=== PATIENT | male | born 1955 | race Caucasian/White ===

== ENCOUNTER 2016-09-20 16:03 | Emergency (ER) | payer OTHER ==
[~2016-09-20] VITALS: Ht 175.3 cm; Wt 94.3 kg
[~2016-09-20 16:03] MED LIST: BENADRYL 50 MG50 MG PO; GEMFIBROZIL600 MG PO; LEVOTHYROXIN0.112 M1 PO; LISINOPRIL-HCTZ 10-1 PO; LOVAZA1 GM PO; MOTRIN 600 MG600 MG PO; PREDNISONE 20MG20 MG PO
[2016-09-20] MEDS ORDERED: BROMPHENIR-PSE118 ML PO (16:13)
[2016-09-20] MEDS ORDERED: AZITHROMYCIN250 M1 PO (16:14)
[2016-09-20] MEDS ORDERED: TAMSULOSIN HCL0.4 M1 PO (16:15)
[2016-09-20] MEDS ORDERED: LISINOPRIL-HCT1 EAC1 PO (16:15)
[2016-09-20] MEDS ORDERED: AMLODIPINE BESYL5 M1 PO (16:17)
[2016-09-20] MEDS ORDERED: MOMETASONE FURO45 G1 TOP (16:18)
--- NOTE | 2016-09-20 16:24 | ED INFLUENZA/URI COMPLAINT ---
History of Present Illness General Chief Complaint: General Adult Stated Complaint: BIBA, FEVER, COUGH Source: patient Exam Limitations: no limitations Vital Signs & Intake/Output Vital Signs & Intake/Output Vital Signs Date Time Temp Pulse Resp B/P Pulse O2 O2 Flow FiO2 Ox Delivery Rate 09/20 1946 91 18 128/74 96 Room Air 09/20 1849 98.7 09/20 1747 101.5 115 20 132/60 94 Room Air 09/20 1746 101.5 09/20 1702 102.5 09/20 1700 102.7 09/20 1611 102.7 114 20 160/86 93 Room Air Allergies Coded Allergies: NO KNOWN ALLERGIES (09/20/16) Reconcile Medications Amlodipine Besylate 5 MG TABLET 1 TAB PO DAILY BP (Reported) Azithromycin 250 MG TABLET 1 DP PO AD ANTIBIOTIC (Reported) 2 the first day followed by 1 for days 2-5 Brompheniramine/Pseudoephed/Dm (Ourgfsaliz-Hcmwdblyztm-Bx Syr) 2 MG-30 MG-10 MG/ 5 ML SYRUP 10 ML PO Q6 COUGH (Reported) Levothyroxine Sodium 0.112 MG TAB 1 TAB PO DAILY HYPOTHYROID (Reported) Lisinopril/Hydrochlorothiazide (Lisinopril-Hctz 20-25 MG Tab) 20 MG-25 MG TABLET 1 TAB PO DAILY BP (Reported) Mometasone Furoate 0.1 % OINT...G. 1 EMI TOP BID SCRATCHES ON BOTH LEGS ( Reported) apply to affected area(s) Tamsulosin HCl 0.4 MG CAP.ER.24H 1 CAP PO DAILY PROSTATE (Reported) Triage Note: PT BIBA FROM HOME C/C FEVER TODAY AND COUGH X 4 DAYS. WAS SEEN AT [facility] IN [place] THIS MORNING AND GIVEN PRESCRIPTIONS FOR AZIRTHROMYCIN AND COUGH MEDICINE. TOOK 1 DOSE OF EACH. 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 REPORTS COUGH HAS BEEN NONPRODUCTIVE. Triage Nurses Notes Reviewed? yes HPI: This patient is a 61-year-old male who presented to the emergency department today brought in by ambulance for evaluation of fever and cough. The patient reported that his cough began approximate 3 days ago and it is nonproductive. He reported that he developed a fever today. The patient reported that this morning he was seen at [facility] and given a prescription for azithromycin and a cough medication. He did not take any doses of these medications prior to arrival in the emergency department. He reported that he still has a fever and a cough. He denied any nasal congestion, chest pain, difficulty breathing, abdominal pain, nausea, vomiting, diarrhea, constipation, or any back pain. (ANTOINETTE DAILEY PA-C) Past History Travel History Traveled to [place] past 21 day No Medical History Any Pertinent Medical History? 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 No (ANTOINETTE DAILEY PA-C) Review of Systems Review of Systems Constitutional: Reports: see HPI. EENTM: Reports: no symptoms. Respiratory: Reports: see HPI. Cardiovascular: Reports: no symptoms. GI: Reports: no symptoms. Genitourinary: Reports: no symptoms. Musculoskeletal: Reports: no symptoms. Skin: Reports: no symptoms. Neurological/Psychological: Reports: no symptoms. All Other Systems: Reviewed and Negative (ANTOINETTE DAILEY PA-C) Physical Exam Physical Exam Ears, Nose, Throat: normal ENT inspection, moist mucous membrane, hearing grossly normal, pharynx normal, NO NASAL CONGESTION Comments: Well-developed well-nourished person in no acute distress HEENT: Normal EENT exam head normocephalic, moist mucous membranes membranes Back: Normal gait. Normal inspection. No CVA tenderness Cardiovascular: Regular rate and rhythm with no murmurs, rubs, or gallops. No carotid bruits. No JVD Respiratory: Chest nontender. No respiratory distress. Breath sounds clear to auscultation bilaterally with no wheezes, rales, or rhonchi. No diminished breath sounds or stridor Abdomen: Soft, nontender and nondistended with normoactive bowel sounds Extremity: No edema, no calf tenderness to palpation, normal and equal pulses. Neuro: Alert oriented x3, cranial nerves II through XII grossly intact. Skin: No appreciable rash on exposed skin, skin is warm and dry. Psych: Mood and affect is normal Core Measures Severe Sepsis Present: No Septic Shock Present: No (ANTOINETTE DAILEY PA-C) Progress Differential Diagnosis: influenza, meningitis, otitis, pneumonia, pharyngitis, sinusitis Plan of Care: Orders Procedure Date/time Status RAPID VIRAL INFLUENZA A 09/20 173 Complete COMPREHENSIVE METABOLIC PANEL 09/20 1623 Complete CBC WITHOUT DIFFERENTIAL 09/20 1623 Complete Laboratory Tests 09/20/16 1650: Anion Gap 10, Estimated GFR > 60, BUN/Creatinine Ratio 21.0, Glucose 105 H, Calcium 8.9, Total Bilirubin 0.7, AST 31, ALT 56, Alkaline Phosphatase 111, Total Protein 7.2, Albumin 4.3, Globulin 2.9, Albumin/Globulin Ratio 1.5, CBC w Diff NO MAN DIFF REQ, RBC 5.36, MCV 83.4, MCH 28.1, RDW 13.4, MPV 7.6, Gran % 86.2 H, Lymphocytes % 8.5 L, Monocytes % 4.6, Eosinophils % 0.6, Basophils % 0.1, Absolute Granulocytes 11.7 H, Absolute Lymphocytes 1.2, Absolute Monocytes 0.6, Absolute Eosinophils 0.1, Absolute Basophils 0, PUBS MCHC 33.7 Diagnostic Imaging: Viewed by Me: Radiology Read. Discussed w/RAD: Radiology Read. CXR Impression: PATIENT: GEORGINA OH PRESENT AGE: 61 PATIENT ACCOUNT NO: [id number] : 53 LOCATION: [facility] ORDERING PHYSICIAN: ANTOINETTE DAILEY PA-C SERVICE DATE: 09/20/16 EXAM TYPE: RAD - XRY-CHEST XRAY, PA AND LATERAL EXAMINATION: XR CHEST CLINICAL INFORMATION: Cough. Fever. Rule out pneumonia. COMPARISON: CT chest of 09/05/2007. TECHNIQUE: 2 views of the chest were obtained. FINDINGS: The cardiac size is normal. The lungs are normally and symmetrically expanded. No focal consolidation, changes of congestion or pleural effusions. No pneumothorax. There is stable mild elevation of the right hemidiaphragm. The visualized osseous structures and upper abdomen are unremarkable. IMPRESSION: No radiographic evidence of pneumonia. No acute pulmonary process. DICTATED BY: ENA CROUCH,ANAL DATE/TIME DICTATED:09/20/161646 NURSE CLINICAL:RODOLFO DATE/TIME TRANSCRIBED:09/20/161646 CONFIDENTIAL, DO NOT COPY WITHOUT APPROPRIATE AUTHORIZATION. <Electronically signed in Other Vendor System> SIGNED BY: CATARINA SUTHERLAND MD 09/20/16 7629 Initial ED EKG: none (ASIM PEÑA,ANTOINETTE) Departure Departure Disposition: HOME OR SELF CARE Condition: Stable Clinical Impression Primary Impression: Viral syndrome Referrals: PEARL MICHAEL MD (PCP/Family) Additional Instructions: PLEASE TAKE PREVIOUSLY PRESCRIBED ANTIBIOTIC DIRECTED AND FOR ITS FULL DURATION. TAKE TYLENOL OR MOTRIN DIRECTED FOR FEVERS. REST AND BE SURE TO STAY HYDRATED. FOLLOW-UP WITH YOUR PRIMARY CARE PHYSICIAN. RETURN FOR ANY WORSENING SYMPTOMS OR CONCERNS. Departure Forms: Customer Survey General Discharge Information (ANTOINETTE DAILEY PA-C) PA/OIL AND GAS FIELD TECHNICIAN Co-Sign Statement Statement: ED Attending supervision documentation- [] I saw and evaluated the patient. I have also reviewed all the pertinent lab results and diagnostic results. I agree with the findings and the plan of care as documented in the PA's/OIL AND GAS FIELD TECHNICIAN's documentation. [X] I have reviewed the ED Record and agree with the PA's/OIL AND GAS FIELD TECHNICIAN's documentation. [] Additions or exceptions (if any) to the PAs/OIL AND GAS FIELD TECHNICIAN's note and plan are summarized below: [] (SHERICE MAHARAJ DO)
--- NOTE | 2016-09-20 16:53 | RADIOLOGY REPORT ---
EXAMINATION: XR CHEST CLINICAL INFORMATION: Cough. Fever. Rule out pneumonia. COMPARISON: CT chest of 09/05/2007. TECHNIQUE: 2 views of the chest were obtained. FINDINGS: The cardiac size is normal. The lungs are normally and symmetrically expanded. No focal consolidation, changes of congestion or pleural effusions. No pneumothorax. There is stable mild elevation of the right hemidiaphragm. The visualized osseous structures and upper abdomen are unremarkable. IMPRESSION: No radiographic evidence of pneumonia. No acute pulmonary process.
[2016-09-20 16:59] LABS: ABSOLUTE BASOPHIL COUNT 0 /CUMM (0.0-0.2); ABSOLUTE EOSINOPHIL COUNT 0.1 /CUMM (0.0-0.7); ABSOLUTE GRANULOCYTE CT 11.7 /CUMM (1.4-6.5); ABSOLUTE LYMPH COUNT 1.2 /CUMM (1.2-3.4); ABSOLUTE MONOCYTE COUNT 0.6 /CUMM (0.10-0.60); BASOPHIL % 0.1 % (0.0-2.0); EOSINOPHIL % 0.6 % (0-5); HEMATOCRIT 44.7 % (42-52); MEAN CORPUSCULAR HGB 28.1 PG (27.0-31.0); MEAN CORPUSCULAR HGB CONC 33.7 G/DL (33.0-37.0); MEAN CORPUSCULAR VOLUME 83.4 FL (80.0-94.0); MEAN PLATELET VOLUME 7.6 FL (7.4-10.4); PLATELET COUNT 245 /CUMM (130-400); RBC DISTRIBUTION WIDTH 13.4 % (11.5-14.5); RED BLOOD CELL CT 5.36 /CUMM (4.70-6.10); WHITE BLOOD CELL COUNT 13.6 /CUMM (4.8-10.8)
[2016-09-20 17:00] LABS: GRANULOCYTE % 86.2 % (42.2-75.2)
[2016-09-20 19:46] VITALS: BP 128/74
== END 2016-09-20 19:47 ==
LOC: ERH 16:03
PROVIDERS: Physician Assistant
DX: B34.9 Viral infection, unspecified (principal); R05 Cough
CPT/HCPCS: 87804; 87804-59; 96374; J0131

== ENCOUNTER 2018-03-13 13:44 | Observation (INO) | payer OTHER ==
[~2018-03-13] VITALS: Ht 162.6 cm; Wt 92.2 kg
[~2018-03-13 13:44] MED LIST changes: +AMLODIPINE BESYL5 M1 PO; +AZITHROMYCIN250 M1 PO; +BROMPHENIR-PSE118 ML PO; +LISINOPRIL-HCT1 EAC1 PO; +MOMETASONE FURO45 G1 TOP; +TAMSULOSIN HCL0.4 M1 PO
[2018-03-13 14:10] LABS: ABSOLUTE BASOPHIL COUNT 0 /CUMM (0.0-0.2); ABSOLUTE EOSINOPHIL COUNT 0.1 /CUMM (0.0-0.7); ABSOLUTE GRANULOCYTE CT 6.6 /CUMM (1.4-6.5); ABSOLUTE LYMPH COUNT 2.6 /CUMM (1.2-3.4); ABSOLUTE MONOCYTE COUNT 0.6 /CUMM (0.10-0.60); BASOPHIL % 0.2 % (0.0-2.0); EOSINOPHIL % 1.2 % (0-5); GRANULOCYTE % 67.2 % (42.2-75.2); HEMATOCRIT 44.2 % (42-52); MEAN CORPUSCULAR HGB 28.9 PG (27.0-31.0); MEAN CORPUSCULAR HGB CONC 34.1 G/DL (33.0-37.0); MEAN CORPUSCULAR VOLUME 84.6 FL (80.0-94.0); MEAN PLATELET VOLUME 8.5 FL (7.4-10.4); PLATELET COUNT 277 /CUMM (130-400); RBC DISTRIBUTION WIDTH 13.2 % (11.5-14.5); RED BLOOD CELL CT 5.22 /CUMM (4.70-6.10); WHITE BLOOD CELL COUNT 9.9 /CUMM (4.8-10.8)
--- NOTE | 2018-03-13 15:14 | RADIOLOGY REPORT ---
EXAMINATION: XR CHEST CLINICAL INFORMATION: Shoulder pain. Dizziness. COMPARISON: Chest x-ray 09/27/2016 TECHNIQUE: 2 views of the chest were obtained. FINDINGS: No significant abnormality is noted involving the heart, lungs, mediastinum, bony thorax or soft tissues. IMPRESSION: No acute abnormality of the chest.
--- NOTE | 2018-03-13 16:59 | ED GENERAL ADULT ---
History of Present Illness General Chief Complaint: General Adult Stated Complaint: DIZZINESS, SWEATS X 24 HRS Source: patient Exam Limitations: no limitations Vital Signs & Intake/Output Vital Signs & Intake/Output Vital Signs Date Time Temp Pulse Resp B/P B/P Pulse O2 O2 Flow FiO2 Mean Ox Delivery Rate 03/14 0122 97.7 46 18 120/62 97 Room Air 03/13 2014 97.6 45 20 117/64 97 Room Air 03/13 1705 07 Room Air Room Air 03/13 1347 96.5 113 16 103/69 97 Room Air ED Intake and Output 03/14 0000 03/13 1200 Intake Total 1000 Output Total Balance 1000 Intake, IV 1000 Patient 202 lb Weight Weight Reported by Patient Measurement Method Triage Note: PT TO ED WITH C/O DIZZINESS, DIAPHORESIS AND BILATERAL SHOULDER WEAKNESS SINCE YESTERDAY. DENIES CP. STATES MILD SOB. NEURO CHECK GROSSLY INTACT AT TRIAGE. SPEAKING IN FULL SENTENCES, 02 SAT 97%. DENIES MEDICAL HX. Triage Nurses Notes Reviewed? yes Onset: Abrupt Duration: day(s): Timing: recent history HPI: 03/13/18 5:16 PM 63-year-old male presented to the emergency department with dizziness and weakness. He's had several episodes of dizziness and diaphoresis. He's recently been diagnosed with diabetes. No chest pain. He says he's had similar episodes in the past workup, has been negative. No chest pain. No shortness of breath. No fever. Only dizziness and diaphoresis. The episodes last minutes. He is asymptomatic in the ED now. (Orlin Teran DO) Allergies Coded Allergies: NO KNOWN ALLERGIES (09/20/16) Reconcile Medications Amlodipine Besylate 5 MG TABLET 1 TAB PO DAILY BP (Reported) Azithromycin 250 MG TABLET 1 DP PO AD ANTIBIOTIC (Reported) 2 the first day followed by 1 for days 2-5 Brompheniramine/Pseudoephed/Dm (Uttiihfqhi-Giecgamksga-Ic Syr) 2 MG-30 MG-10 MG/ 5 ML SYRUP 10 ML PO Q6 COUGH (Reported) Levothyroxine Sodium 112 MCG TABLET 1 TAB PO DAILY AC HYPOTHYROID (Reported) Lisinopril/Hydrochlorothiazide (Lisinopril-Hctz 20-25 MG Tab) 20 MG-25 MG TABLET 1 TAB PO DAILY BP (Reported) Mometasone Furoate 0.1 % OINT...G. 1 EMI TOP BID SCRATCHES ON BOTH LEGS ( Reported) apply to affected area(s) Rosuvastatin Calcium (Crestor) 10 MG TABLET 1 TAB PO DAILY Heart Health ( Reported) Tamsulosin HCl 0.4 MG CAP.ER.24H 1 CAP PO DAILY PROSTATE (Reported) (Farnaz CROUCH,Donald Michelle) Past History Travel History Traveled to [place] past 21 day No Medical History Any Pertinent Medical History? 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 No (Orlin Teran DO) Review of Systems Review of Systems Constitutional: Denies: fever. EENTM: Denies: visual changes. Respiratory: Denies: short of breath. Cardiovascular: Denies: chest pain. GI: Denies: abdominal pain. Genitourinary: Reports: no symptoms. Musculoskeletal: Reports: no symptoms. Skin: Reports: see HPI. Neurological/Psychological: Reports: no symptoms. Hematologic/Endocrine: Reports: no symptoms. Immunologic/Allergic: Reports: no symptoms. (Orlin Teran DO) Physical Exam Physical Exam General Appearance: well developed/nourished, alert, awake, anxious, mild distress Head: atraumatic, normal appearance Eyes: Bilateral: normal appearance, PERRL, EOMI. Ears, Nose, Throat: normal pharynx, normal ENT inspection Neck: normal inspection, supple, full range of motion Respiratory: normal breath sounds, chest non-tender, no respiratory distress Cardiovascular: regular rate/rhythm Peripheral Pulses: 4+ radial (R), 4+ radial (L) Gastrointestinal: soft, non-tender Back: normal range of motion Extremities: normal inspection, normal range of motion, no edema Neurologic/Psych: no motor/sensory deficits, awake, alert, oriented x 3 Skin: intact, normal color, warm/dry Core Measures ACS in differential dx? Yes CVA/TIA Diagnosis: No Sepsis Present: No Sepsis Focused Exam Completed? No (Orlin Teran DO) Progress Differential Diagnoses I considered the following diagnoses in my evaluation of the patient: [Acute coronary syndrome, dysrhythmia, dehydration, anemia, hypoglycemia, adverse drug reaction, DKA] Plan of Care: Orders Procedure Date/time Status Regular Diet 03/14 B Active ECHOCARDIOGRAM 03/14 0800 Active BASIC ELECTROLYTES PLUS BUN&CR 03/14 0600 Active Vital Signs 03/14 0250 Complete Teach/Educate 03/14 0250 Active Pain Treatment and Response 03/14 0250 Complete Nutritional Intake, Monitor 03/14 0250 Complete Isolation 03/14 025 Complete Intake & Output 03/14 0250 Complete Patient Care Conference 03/14 0250 Active Activity/Ambulation 03/14 0250 Complete Weight 03/14 0249 Active Vital Signs 03/14 0249 Complete Teach/Educate 03/14 0249 Active Pain Treatment and Response 03/14 0249 Active Nutritional Intake, Monitor 03/14 0249 Active Isolation 03/14 0249 Active Intake & Output 03/14 0249 Complete Patient Care Conference 03/14 0249 Complete Activity/Ambulation 03/14 0249 Active TROPONIN LEVEL 03/14 0130 Complete EKG 03/14 0130 Active Lab Add-on Test 03/14 UNK Active Pathway - chart 03/13 2234 Active House Staff 03/13 2234 Active Code Status 03/13 2234 Active Patient Data 03/13 2047 Active Saline Lock 03/[address] in observation 03/13 2042 Active Misc Message 03/13 2042 Active ED Holding Orders 03/13 2042 Active Vital Signs 03/13 2042 Active Code Status 03/13 2042 Complete EKG 03/13 2025 Active TROPONIN LEVEL 03/13 1913 Complete EKG 03/13 1913 Active Intake & Output 03/13 1814 Active THYROID STIMULATING HORMONE 03/13 1401 Complete TROPONIN LEVEL 03/13 1347 Complete D-DIMER 03/13 1347 Complete COMPREHENSIVE METABOLIC PANEL 03/13 1347 Complete CBC WITHOUT DIFFERENTIAL 03/13 1347 Complete EKG 03/13 1347 Active VTE Mechanical Prophylaxis 03/13 UNK Active MISTAKE 03/13 UNK Active Current Medications Sig/Asiya Start time Last Medication Dose Stop Time Status Admin Atorvastatin Calcium 10 MG 1700 03/14 1700 AC (Lipitor) Amlodipine Besylate 5 MG DAILY 03/14 0900 AC (Norvasc) Tamsulosin HCl 0.4 MG DAILY 03/14 09 AC (Flomax) Levothyroxine Sodium 0.112 MG DAILY AC 03/14 0700 AC (Synthroid) Heparin Sodium 5,000 UNIT Q8 03/14 0600 AC (Porcine) Sodium Chloride 1,000 ML .[id number] 03/13 2245 AC (Normal Saline 0.9%) 03/14 1204 Laboratory Tests 03/14/18 0130: Troponin I < 0.01 03/13/18 1924: Troponin I < 0.01 03/13/18 1401: Anion Gap 15, Estimated GFR 51 L, BUN/Creatinine Ratio 23.6, Glucose 187 H, Calcium 8.9, Total Bilirubin 0.6, AST 23, ALT 39, Alkaline Phosphatase 103, Troponin I < 0.01, Total Protein 7.0, Albumin 4.2, Globulin 2.8, Albumin/ Globulin Ratio 1.5, TSH 1.440, D-Dimer High Sensitivty < 200, CBC w Diff NO MAN DIFF REQ, RBC 5.22, MCV 84.6, MCH 28.9, MCHC 34.1, RDW 13.2, MPV 8.5, Gran % 67.2, Lymphocytes % 25.8, Monocytes % 5.6, Eosinophils % 1.2, Basophils % 0.2, Absolute Granulocytes 6.6 H, Absolute Lymphocytes 2.6, Absolute Monocytes 0.6, Absolute Eosinophils 0.1, Absolute Basophils 0 Initial ED EKG: JUNCTIONAL TACHYCARDIA, NONSPECIFIC ST WAVE ABNORMALITY (Orlin Teran DO) Departure Departure Disposition: STILL A PATIENT Condition: Stable Referrals: Brandie Waddell APRN (PCP/Family) Departure Forms: Customer Survey General Discharge Information Comments 03/13/18 The patient's EKG revealed junctional tachycardia. His physical exam is completely normal. 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 Heart is regular rate and rhythm. Lungs are clear. Abdomen is soft and nontender. He received IV fluids. Labs showed mild dehydration. He was for reevaluation and repeat EKG and troponin. The patient was signed out to Dr. Osei at 7 PM. Chest x-ray was negative. (Orlin Teran DO) Departure Clinical Impression Primary Impression: Dizziness Secondary Impressions: Symptomatic bradycardia Observation Note Spoke With: Prabha Fenton MD Place Patient In: Non-ED OBS Care Area Rationale for Observation: My rational for observation is as follows . PA/HEATING OPERATORS ENGINEER Co-Sign Statement Statement: ED Attending supervision documentation- [x] I saw and evaluated the patient. I have also reviewed all the pertinent lab results and diagnostic results. I agree with the findings and the plan of care as documented in the PA's/HEATING OPERATORS ENGINEER's documentation. [] I have reviewed the ED Record and agree with the PA's/HEATING OPERATORS ENGINEER's documentation. [] Additions or exceptions (if any) to the PAs/HEATING OPERATORS ENGINEER's note and plan are summarized below: [] (Farnaz CROUCH,Donald Michelle) Critical Care Note Critical Care Note Critical Care Time: non-applicable (Orlin Teran DO)
--- NOTE | 2018-03-13 21:18 | History & Physical ---
Miguel CROUCH,[facility] 03/13/182117: General Information and HPI MD Statement: I have seen and personally examined GEORGINA OH and documented this H&P. The patient is a 63 year old M who presented with a patient stated chief complaint of [dizziness and diaphoresis]. Source of Information: patient Exam Limitations: language barrier History of Present Illness: 63 yo M with PMH of hypertension, hypothyroidism, hyperlipidemia and BPH presented to the ED with complains of dizziness and diaphoresis going on since yesterday. History is slightly limited as the patient is not able to convey fluently in Maltese. The patient states that he was in his usual state health until yesterday afternoon. 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 He was working outside yesterday when he started feeling dizzy with profuse sweating. He excused himself from work and came home and rested after which he started feeling better. Today he went to work again and experienced similar symptoms all over again. He left for home again and felt better afterwards. He went to his PCP at [facility] later today who told him he was dehydrated. However, he decided to visit the ER for further evaluation. He denies any prior episodes or sick contacts around. He denies any chest pain, palpitations, lightheadedness or any other associated symptoms. States he has never seen a director federal in the past. At the time of interview the patient was asymptomatic and denied any complains. Allergies/Medications Allergies: Coded Allergies: NO KNOWN ALLERGIES (09/20/16) Home Med list Amlodipine Besylate 5 MG TABLET 1 TAB PO DAILY BP (Reported) Azithromycin 250 MG TABLET 1 DP PO AD ANTIBIOTIC (Reported) 2 the first day followed by 1 for days 2-5 Brompheniramine/Pseudoephed/Dm (Wseanpekgl-Gmylosihntk-Ib Syr) 2 MG-30 MG-10 MG/ 5 ML SYRUP 10 ML PO Q6 COUGH (Reported) Levothyroxine Sodium 112 MCG TABLET 1 TAB PO DAILY AC HYPOTHYROID (Reported) Lisinopril/Hydrochlorothiazide (Lisinopril-Hctz 20-25 MG Tab) 20 MG-25 MG TABLET 1 TAB PO DAILY BP (Reported) Mometasone Furoate 0.1 % OINT...G. 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 EENTM: Reports: no symptoms. Cardiovascular: Denies: chest pain, palpitations. Respiratory: Reports: short of breath. GI: Reports: no symptoms. Genitourinary: Reports: no symptoms. Musculoskeletal: Reports: no symptoms. Skin: Reports: no symptoms. Neurological/Psychological: Reports: weakness, other (dizziness). Exam & Diagnostic Data Last 24 Hrs of Vital Signs/I&O Vital Signs Date Time Temp Pulse Resp B/P B/P Pulse O2 O2 Flow FiO2 Mean Ox Delivery Rate 03/13 2014 97.6 45 20 117/64 97 Room Air 03/13 1705 07 Room Air Room Air 03/13 1347 96.5 113 16 103/69 97 Room Air Intake & Output 03/13 1600 03/13 0800 03/13 0000 Intake Total Output Total Balance Patient 202 lb Weight Weight Reported by Patient Measurement Method Physical Exam General Appearance Alert, Oriented X3, Cooperative, No Acute Distress Skin No Rashes, No Breakdown Skin Temp/Moisture Exam: Warm/Dry Sepsis Skin Exam (color): Normal for Ethnicity HEENT Atraumatic Cardiovascular Normal S1, Normal S2, No Murmurs, bradycardic Lungs Clear to Auscultation, Normal Air Movement Abdomen Soft, No Tenderness Neurological Normal Speech, Strength at 5/5 X4 Ext Extremities No Edema Last 24 Hrs of Labs/Connor: Laboratory Tests 03/13/18 1924: Troponin I < 0.01 03/13/18 1401: Anion Gap 15, Estimated GFR 51 L, BUN/Creatinine Ratio 23.6, Glucose 187 H, Calcium 8.9, Total Bilirubin 0.6, AST 23, ALT 39, Alkaline Phosphatase 103, Troponin I < 0.01, Total Protein 7.0, Albumin 4.2, Globulin 2.8, Albumin/ Globulin Ratio 1.5, D-Dimer High Sensitivty < 200, CBC w Diff NO MAN DIFF REQ, RBC 5.22, MCV 84.6, MCH 28.9, MCHC 34.1, RDW 13.2, MPV 8.5, Gran % 67.2, Lymphocytes % 25.8, Monocytes % 5.6, Eosinophils % 1.2, Basophils % 0.2, Absolute Granulocytes 6.6 H, Absolute Lymphocytes 2.6, Absolute Monocytes 0.6, Absolute Eosinophils 0.1, Absolute Basophils 0 Assessment/Plan Assessment: 63 yo M with PMH of hypertension, hypothyroidism, hyperlipidemia and BPH presented to the ED with complains of dizziness and diaphoresis going on since yesterday. His serum chemistry is significant for prerenal azotemia likely in the context of dehydration. In the ER he received 1L of NS Assessment: 1. MARCE 2. Asymptomatic Bradycardia 3. Dehydration 4. Dizziness Plan: * Admit patient to telemetry in obs * Continue gentle hydration with IV NS @75ml/hr - 1 bag * Trend Renal function * Hold Lisinopril/HCTZ in the setting of MARCE * Continue Amlodipine * His bradycardia could be contributing to his spells of dizziness though he appears to be asymptomatic at this time. * Rule out ACS with serial troponins and EKGs. * Check orthostatic vitals * Cardiology consult in am * Can give a trial of meclizine if his dizziness persists. * Diet: Regular * DVT Prophylaxis: SC Heparin * Code: Full Code As Ranked By This Provider Problem List: 1. Dizziness Core Measures/Misc (05/01) Acute Coronary Syndrome ACS Diagnosis: No Congestive Heart Failure Congestive Heart Failure Diagnosis No Cerebrovascular Accident CVA/TIA Diagnosis: No VTE (View Protocol) VTE Risk Factors Age>40 No Mechanical VTE Prophylaxis d/t N/A MechProphylax Ordered No VTE Pharm Prophylaxis d/t NA PharmProphylax ordered Sepsis (View protocol) Sepsis Present: No If YES complete Sepsis Event Note If YES complete Sepsis Event Note Jossy CROUCH,Prabha 03/14/18 0201: Exam & Diagnostic Data Last 24 Hrs of Vital Signs/I&O Vital Signs Date Time Temp Pulse Resp B/P B/P Pulse O2 O2 Flow FiO2 Mean Ox Delivery Rate 03/14 012 97.7 46 18 120/62 97 Room Air 03/13 2014 97.6 45 20 117/64 97 Room Air 03/13 1705 07 Room Air Room Air 03/13 1347 96.5 113 16 103/69 97 Room Air Intake & Output 03/14 0800 03/14 0000 03/13 1600 Intake Total 1000 Output Total Balance 1000 Intake, IV 1000 Patient 91.626 kg Weight Weight Reported by Patient Measurement Method Core Measures/Misc (05/01) Sepsis (View protocol) If YES complete Sepsis Event Note If YES complete Sepsis Event Note Attending MD Review Statement Attending Statement Attending MD Statement: examined this patient, discuss w/resident/PA/REFERRAL CLERK, agreed w/resident/PA/REFERRAL CLERK Attending Assessment/Plan: This is a 63-year-old gentleman with a past medical history significant for hypertension BPH hyperlipidemia and hypothyroidism who presented to the hospital for evaluation of dizziness. The patient admitted that he has been working outside in the heat for long periods of time. Problem list: Dizziness likely secondary to mild dehydration Acute kidney injury likely prerenal azotemia secondary to dehydration in combination with MARIE inhibitor and thiazide diuretic usage Asymptomatic sinus bradycardia. Patient was in fact tachycardic on admission however after volume expansion his heart rate seems to have normalized Patient was seen and examined. I agree with the resident's H&P
[2018-03-13] MEDS ORDERED: LEVOTHYROXINE112 MCG PO (22:38)
[2018-03-13] MEDS ORDERED: CRESTOR10 M1 PO (23:09)
[2018-03-14 06:49] VITALS: BP 138/82
--- NOTE | 2018-03-14 07:18 | PN- Housestaff ---
Luke Mendez 03/14/18 0718: Subjective Follow-up For: 1. MARCE 2. Bradycardia 3. Dehydration 4. Dizziness Complaints: no complaints Tele-Events Since Last Visit: sinus rhythm Sinus bradycardia Subjective: Patient was seen and examined this morning. He is alert awake and oriented to time place and person. No acute overnight events. He denied any more dizzy or lightheadedness. Denies any chest pain short of breath palpitations, nausea, sweating, diaphoresis Review of Systems Constitutional: Reports: see HPI. Objective Last 24 Hrs of Vital Signs/I&O Vital Signs Date Time Temp Pulse Resp B/P B/P Pulse O2 O2 Flow FiO2 Mean Ox Delivery Rate 03/14 0959 50 138/82 03/14 0649 97.8 50 22 138/82 97 03/14 0122 97.7 46 18 120/62 97 Room Air 03/13 2014 97.6 45 20 117/64 97 Room Air 03/13 1705 07 Room Air Room Air 03/13 1347 96.5 113 16 103/69 97 Room Air Intake & Output 03/14 1600 03/14 0800 03/14 0000 Intake Total 120 1000 Output Total Balance 120 1000 Intake, IV 1000 Intake, Oral 120 Patient 92.079 kg Weight Weight Bed scale Measurement Method Physical Exam General Appearance: Alert, Oriented X3, Cooperative, No Acute Distress Other Physical Findings: HEENT Atraumatic Cardiovascular Normal S1, Normal S2, No Murmurs, bradycardic Lungs Clear to Auscultation, Normal Air Movement Abdomen Soft, No Tenderness Neurological Normal Speech, Strength at 5/5 X4 Ext Extremities No Edema Current Medications: Current Medications Sig/Asiya Start time Last Medication Dose Route Stop Time Status Admin Amlodipine Besylate 5 MG DAILY 03/14 0900 AC 03/14 PO 0959 Atorvastatin Calcium 10 MG 1700 03/14 1700 AC PO Heparin Sodium 5,000 UNIT Q8 03/14 0600 AC 03/14 (Porcine) SC 0522 Levothyroxine Sodium 0.112 MG DAILY AC 03/14 07 AC 03/14 PO 0522 Sodium Chloride 1,000 ML .[id number] 03/13 2245 DC IV 03/14 1204 Sodium Chloride 1,000 ML BOLUS ONE 03/13 1815 DC 03/13 IV 03/13 1914 1810 Tamsulosin HCl 0.4 MG 2100 03/14 2100 AC PO Tamsulosin HCl 0.4 MG DAILY 03/14 0900 DC PO Last 24 Hrs of Lab/Connor Results Last 24 Hrs of Labs/Mics: Laboratory Tests 03/14/18 0610: Anion Gap 9, Estimated GFR > 60, BUN/Creatinine Ratio 30.0 H 03/14/18 0130: Troponin I < 0.01 03/13/18 1924: Troponin I < 0.01 03/13/18 1401: Anion Gap 15, Estimated GFR 51 L, BUN/Creatinine Ratio 23.6, Glucose 187 H, Calcium 8.9, Total Bilirubin 0.6, AST 23, ALT 39, Alkaline Phosphatase 103, Troponin I < 0.01, Total Protein 7.0, Albumin 4.2, Globulin 2.8, Albumin/ Globulin Ratio 1.5, TSH 1.440, D-Dimer High Sensitivty < 200, CBC w Diff NO MAN DIFF REQ, RBC 5.22, MCV 84.6, MCH 28.9, MCHC 34.1, RDW 13.2, MPV 8.5, Gran % 67.2, Lymphocytes % 25.8, Monocytes % 5.6, Eosinophils % 1.2, Basophils % 0.2, Absolute Granulocytes 6.6 H, Absolute Lymphocytes 2.6, Absolute Monocytes 0.6, Absolute Eosinophils 0.1, Absolute Basophils 0 Assessment/Plan Assessment: 63 yo M with PMH of hypertension, hypothyroidism, hyperlipidemia and BPH presented to the ED with complains of dizziness and diaphoresis going on for 1 day. Labs 9.9 WBC, hemoglobin 15 and platelets 277 Sodium 139, potassium 4.4, BUN 33 and creatinine 1.4 Troponin normal 1. MARCE AK likely prerenal azotemia secondary to dehydration in combination with MARIE inhibitor and thiazide diuretic usage. * Received 1 bag of normal saline * Creatinine back to normal * Lisinopril and hydrochlorothiazide on hold * Avoid nephrotoxins 2. Sinus bradycardia Patient presented with an episode of dizziness and lightheadedness, working outside in the heat for long periods of time. Dizziness most likely from dehydration. He was tachycardic at the time of admission 113 however after couple of hours he changed to sinus bradycardia, sinus rhythm * observation status * Continuous telemetry monitoring * Serial troponin and EKG negative * No AV block was found * He is not on any rate control agents like beta blockers or calcium channel jossie * Etiology unknown * Cardiology consulted * Avoid medications that cause bradycardia Hypertension continue amlodipine Hyperlipidemia continue Lipitor BPH continue tamsulosin Hypothyroid continue levothyroxine * Diet: Regular * DVT Prophylaxis: SC Heparin * Code: Full Code Problem List: 1. Symptomatic bradycardia Pain Ratin Pain Location: n/a Pain Goal: Remain pain free Pain Plan: n/a Tomorrow's Labs & Rationales: none Sherry Figueroa MD 03/14/18 1143: Attending MD Review Statement Attending Statement Attending MD Statement: examined this patient, discuss w/resident/PA/ACCOUNTANT AUDITOR, agreed w/resident/PA/ACCOUNTANT AUDITOR, discussed with family, reviewed EMR data (avail), discussed with nursing, discussed with case mgmt, reviewed images Attending Assessment/Plan: 63-year-old [place] male past medical history of hypertension here with episode of dizziness and bradycardia. He was dehydrated with marce on admission and I think the lisinopril and hydrochlorothiazide worsened things. He has done well overnight with no more complaints, is not orthostatic and his creatinine has normalized. We will have Dr. Loyola see him just to clarify for the bradycardia and if he stays without symptoms likely discharge today with outpatient follow-up.
--- NOTE | 2018-03-14 11:25 | Patient Discharge Instructions ---
Discharge Instructions General Discharge Information You were seen/treated for: Bradycardia Special Instructions: Follow-up with PCP in 1 week after discharge Follow-up with distance learning program coordinator in 1 week after discharge Diet Continue normal diet: Yes Activity Full Activity/No Limits: Yes Acute Coronary Syndrome Inclusion Criteria At DC or during hospital stay patient has or had the following: ACS DIAGNOSIS No Discharge Core Measures Meds if any: Prescribed or Continued at Discharge Meds if any: NOT Prescribed or Continued at Discharge Congestive Heart Failure Inclusion Criteria At DC or during hospital stay patient has or had the following: CHF DIAGNOSIS No Discharge Core Measures Meds if any: Prescribed or Continued at Discharge Meds if any: NOT Prescribed or Continued at Discharge Cerebrovascular accident Inclusion Criteria At DC or during hospital stay patient has or had the following: CVA/TIA Diagnosis No Discharge Core Measures Meds if any: Prescribed or Continued at Discharge Meds if any: NOT Prescribed or Continued at Discharge Venous thromboembolism Inclusion Criteria VTE Diagnosis No VTE Type NONE VTE Confirmed by (Test) NONE Discharge Core Measures - Per Current guidelines, there needs to be overlap - treatment for the first 5 days of Warfarin therapy. - If discharged on Warfarin prior to 5 days of - overlap therapy, the patient will need to be - assessed for post discharge needs including - *Post discharge parental anticoagulation - *Warfarin and/or parental anticoagulation education - *Follow up date to check INR post discharge At least 5 days overlap therapy as Inpatient No Meds if any: Prescribed or Continued at Discharge Note: Overlap Therapy is Warfarin and Anticoagulant Meds if any: NOT Prescribed or Continued at Discharge
[2018-03-14 14:42] VITALS: BP 134/78
--- NOTE | 2018-03-14 17:50 | Cons- Cardiology ---
General Information and HPI Consulting Request Date of Consult: 03/14/18 Requested By: Prabha Fenton MD History of Present Illness: This patient is a 63 year old male with prior history of hypertension, dyslipidemia and hypothyroidism. He also reports severe vertigo several years ago. Over the past couple days he has noted multiple episodes of dizziness and an of-balance sensation. It tends to be worse if he arises from a bent over position and tends to resolve with keeping still which is suggestive of a labyrinthitis. He denies any loss of consciousness. In the ER the patient was noted to be bradycardic and times and, at other times, had a junctional rhythm at a normal heart rate. He denies chest pain, shortness of breath or palpitations. The patient is a very poor historian. It should be noted that this patient was previously on pseudophed. He now feels improved. Allergies/Medications Allergies: Coded Allergies: NO KNOWN ALLERGIES (09/20/16) Home Med List: Amlodipine Besylate 5 MG TABLET 1 TAB PO DAILY BP (Reported) Azithromycin 250 MG TABLET 1 DP PO AD ANTIBIOTIC (Reported) 2 the first day followed by 1 for days 2-5 Brompheniramine/Pseudoephed/Dm (Baiiwdgnmf-Nycvfytyotw-Ej Syr) 2 MG-30 MG-10 MG/ 5 ML SYRUP 10 ML PO Q6 COUGH (Reported) Levothyroxine Sodium 112 MCG TABLET 1 TAB PO DAILY AC HYPOTHYROID (Reported) Lisinopril/Hydrochlorothiazide (Lisinopril-Hctz 20-25 MG Tab) 20 MG-25 MG TABLET 1 TAB PO DAILY BP (Reported) Mometasone Furoate 0.1 % OINT...G. 1 EMI TOP BID SCRATCHES ON BOTH LEGS ( Reported) apply to affected area(s) Rosuvastatin Calcium (Crestor) 10 MG TABLET 1 TAB PO DAILY Heart Health ( Reported) Tamsulosin HCl 0.4 MG CAP.ER.24H 1 CAP PO DAILY PROSTATE (Reported) Review of Systems Review of Systems: A reveiw of systems is unremarkable. 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 Surgical History Surgical History: none Psychosocial History Smoking Status: Never Smoked Exam & Diagnostic Data Vital Signs and I&O Vital Signs Date Time Temp Pulse Resp B/P B/P Pulse O2 O2 Flow FiO2 Mean Ox Delivery Rate 03/14 1442 98.5 55 20 134/78 95 Room Air 03/14 0959 50 138/82 03/14 0649 97.8 50 22 138/82 97 03/14 0122 97.7 46 18 120/62 97 Room Air 03/13 2014 97.6 45 20 117/64 97 Room Air Intake & Output 03/14 1600 03/14 0800 03/14 0000 03/13 1600 03/13 0800 03/13 0000 Intake Total 571 240 9494 Output Total Balance 539 574 9130 Intake, IV 1000 Intake, Oral 600 120 Patient 203 lb 202 lb Weight Weight Bed scale Reported by Patient Measurement Method Physical Exam: General: WD/WN male in NAD; alert and oriented x 3 HEENT: NC/AT, PERRL, EOMI Neck: no JVD, no carotid bruit Heart: RRR w/o murmur Lungs: clear bilaterally ABdomen: soft, NT, +ve bowel sounds Extremities: no edema Assessment/Plan Assessment/Plan * This patient has dizziness and may well have a labyrinthitis although hemodynamic instablility from bradycardia, a junctional rhythm or dehydration cannot be excluded. Pseudophed can cause tachycardia and arrhythmias and may be a culprit. As such, it should be avoided. Monitor this patient on telemetry for another 24 hours off this medication. * Give Meclizine if needed for dizziness. * Obtain orthostatic BP measurements. I suspect that this patient was also dehydrated at the time of admission but he has now received saline with some improvement. * Obtain an echocardiogram. Consult Acknowledgment - Thank you for your consult request.
[2018-03-14 22:07] VITALS: BP 132/76
[2018-03-15 06:32] VITALS: BP 130/84
--- NOTE | 2018-03-15 06:45 | PN- Housestaff ---
Ashvin CROUCH,Mando 03/15/18 0645: Subjective Follow-up For: Follow-up dizziness and diaphoresis possibly secondary to dehydration, leading to MARCE Complaints: no complaints Tele-Events Since Last Visit: Telemetry monitoring shows normal sinus rhythm with bradycardia and heart rate of 48 Review of Systems Constitutional: Reports: no symptoms. Objective Last 24 Hrs of Vital Signs/I&O Vital Signs Date Time Temp Pulse Resp B/P B/P Pulse O2 O2 Flow FiO2 Mean Ox Delivery Rate 03/15 829 52 130/64 03/15 0632 97.5 52 20 130/84 94 03/14 2207 97.6 52 20 132/76 95 03/14 1442 98.5 55 20 134/78 95 Room Air 03/14 0959 50 138/82 Intake & Output 03/15 1600 03/15 0803/15 0000 Intake Total 220 220 Output Total Balance 220 220 Intake, Oral 220 220 Patient 92.249 kg Weight Physical Exam General Appearance: Alert, Oriented X3, Cooperative, No Acute Distress Neck: Supple, No JVD Cardiovascular: Normal S1, Normal S2 Lungs: Clear to Auscultation, Normal Air Movement Abdomen: Soft, No Tenderness Extremities: No Clubbing, No Cyanosis, No Edema Vascular: Normal Pulses, Pulses Symmetrical Current Medications: Current Medications Sig/Asiya Start time Last Medication Dose Route Stop Time Status Admin Amlodipine Besylate 5 MG DAILY 03/14 09 AC 03/15 PO 0829 Atorvastatin Calcium 10 MG 1700 03/14 1700 AC 03/14 PO 1749 Heparin Sodium 5,000 UNIT Q8 03/14 0600 AC 03/15 (Porcine) SC 0541 Levothyroxine Sodium 0.112 MG DAILY AC 03/14 0700 AC 03/15 PO 0539 Meclizine HCl 12.5 MG TIDPRN PRN 03/14 1915 AC PO Sodium Chloride 1,000 ML .[id number] 03/13 2245 DC IV 03/14 1204 Tamsulosin HCl 0.4 MG 2100 03/14 2100 AC 03/14 PO 211 Tamsulosin HCl 0.4 MG DAILY 03/14 0900 DC PO Assessment/Plan Assessment: Patient is 63-year-old male with past medical history of hypertension, hypothyroid, hyperlipidemia, BPH presented with with chief complaints of dizziness and diaphoresis probably secondary to the dehydration leading to MARCE. He was treated with IV fluid. We held the lisinopril and hydrochlorothiazide initially, and restarted as his creatinine improved. He also started the patient on meclizine to help him with the dizziness. Currently he is denying for any symptoms. Vital signs-temperature 97.5, pulse 52, respiratory 20, blood pressure 130/84, SPO2 94% on room air. Blood workup-creatinine has been improved from 1.4 to 0.9. Assessment and plan- * Dizziness secondary to dehydration complicated by MARCE - * We discharged the patient with advice to follow-up with the PCP within a week. * We will continue the same medication with addition of tablet meclizine as needed. * Diet -heart healthy diet, low-salt * DVT prophylaxis-ambulation Problem List: 1. Dizziness 2. Symptomatic bradycardia Pain Ratin Pain Location: n/a Pain Goal: Remain pain free Pain Plan: n/a Tomorrow's Labs & Rationales: n/a DVT/Prophylaxis: mechanical, pharmacological Henry RCOUCH,Sherry 03/15/18 1335: Attending MD Review Statement Attending Statement Attending MD Statement: examined this patient, discuss w/resident/PA/INTEGRATION CONSULTANT, agreed w/resident/PA/INTEGRATION CONSULTANT, reviewed EMR data (avail), discussed with nursing, discussed with case mgmt, reviewed images Attending Assessment/Plan: Patient feels well. He has had no more episodes of dizziness. Cardiology wanted to keep him another night to watch for any bradycardia arrhythmias. And have an echocardiogram. The echocardiogram did not show any wall motion abnormalities and a normal EF. He will be discharged on his usual medication with outpatient follow-up.
[2018-03-15 08:29] VITALS: BP 130/64
--- NOTE | 2018-03-15 10:40 | ECHOCARDIOGRAM REPORT ---
GEORGINA OH Age: 63 : 1955 Gender: M Exam Date: 03/14/2018 16:14 Exam Location: [address] [facility] Ht (in): 64 Wt (lb): 202 BSA: 2.07 BP: 138 / 82 Ordering Physician: Naresh Aponte MD Referring Physician: José Miguel Loyola MD, PhD Technologist: Mahnaz Arauz [facility] Room Number: 188 Indications: Lightheadedness Rhythm: Sinus Technical Quality: good FINDINGS Left Ventricle Normal left ventricular size with mild left ventricular hypertrophy. Normal systolic function with no obvious regional wall motion abnormalities. Normal left ventricular diastolic filling pattern for age. The ejection fraction is visually estimated at 60%. Right Ventricle The right ventricle is normal in size and function. Right Atrium The right atrium is normal in size. Left Atrium The left atrium is moderately enlarged. The interatrial septum is intact. Mitral Valve The mitral valve is normal in structure and function. There is mild mitral regurgitation. Aortic Valve Structurally normal aortic valve without significant sclerosis or stenosis. There is no aortic regurgitation. Tricuspid Valve The tricuspid valve is normal in structure and function. There is trace tricuspid regurgitation. Pulmonary artery systolic pressure is normal. Pulmonic Valve Structurally normal pulmonic valve. There is mild pulmonic regurgitation. Pericardium Normal pericardium without effusion. No pleural effusion. Great Vessels Normal aortic root dimension. The aortic arch and great vessels are well seen and are normal. CONCLUSIONS 1. Normal EF of 60%. 2. Mild left ventricular hypertrophy. 3. Moderate left atrial enlargement. 4. Mild mitral regurgitation. 5. Trace tricuspid regurgitation. 6. Mild pulmonic regurgitation. José Miguel Loyola M.D. (Electronically Signed) Final Date: 15 March 2018 10:38 MEASUREMENTS (Male / Female) Normal Values 2D ECHO LV Diastolic Diameter PLAX 4.9 cm 4.2 - 5.9 / 3.9 - 5.3 cm LV Systolic Diameter PLAX 3.0 cm 2.1 - 4.0 cm LV Fractional Shortening PLAX 38.8 % 25 - 46 % LV Ejection Fraction 2D Teich 69.0 % IVS Diastolic Thickness 1.3 cm LVPW Diastolic Thickness 1.3 cm LV Relative Wall Thickness 0.5 RV Internal Dim ED PLAX 3.2 cm 1.9 - 3.8 cm LVOT Diameter 2.2 cm Aortic Root Diameter 3.1 cm LA Systolic Diameter LX 4.6 cm 3.0 - 4.0 / 2.7 - 3.8 cm LA Volume 66.0 cm 18 - 58 / 22 - 52 cm Ascending Aorta Diameter 3.3 cm DOPPLER AV Peak Velocity 124.0 cm/s AV Peak Gradient 6.2 mmHg AV Mean Velocity 82.8 cm/s AV Mean Gradient 3.0 mmHg AV Velocity Time Integral 25.7 cm LVOT Peak Velocity 110.0 cm/s LVOT Peak Gradient 4.8 mmHg LVOT Mean Velocity 73.4 cm/s LVOT Mean Gradient 2.0 mmHg LVOT Velocity Time Integral 23.1 cm LVOT Stroke Volume 87.8 cm AV Area Cont Eq vti 3.4 cm AV Area Cont Eq pk 3.4 cm MV Peak Velocity 96.7 cm/s MV Peak Gradient 3.7 mmHg MV Mean Velocity 50.4 cm/s MV Mean Gradient 1.0 mmHg Mitral E Point Velocity 90.8 cm/s Mitral A Point Velocity 65.2 cm/s Mitral E to A Ratio 1.4 MV PHT Velocity 103.0 cm/s MV Deceleration Bailey 381.0 cm/s MV Pressure Half Time 81.1 ms MV Area PHT 2.7 cm MV Deceleration Time 215.0 ms TR Peak Velocity 117.0 cm/s TR Peak Gradient 5.5 mmHg Right Atrial Pressure 5.0 mmHg Pulmonary Artery Systolic Pressure 10.5 mmHg Right Ventricular Systolic Pressure 10.5 mmHg PV Peak Velocity 105.0 cm/s PV Peak Gradient 4.4 mmHg PV Mean Velocity 71.8 cm/s PV Mean Gradient 2.0 mmHg PV Velocity Time Integral 26.3 cm LV E' Lateral Velocity 9.9 cm/s Mitral E to LV E' Lateral Ratio 9.2 LV E' Septal Velocity 8.2 cm/s Mitral E to LV E' Septal Ratio 11.1
[2018-03-15] MEDS ORDERED: MECLIZINE HCL12.5 M1 PO ×2 (13:09→13:10)
== END 2018-03-15 12:45 ==
LOC: ERH 13:44 → ERHI 20:42 → 1NO 20:42 → ENRESERV 03-14 01:11 → 1NO 03-14 02:31 → ENPENDDIS 03-15 11:47 → 1NO 03-15 12:45
PROVIDERS: Physician Assistant Medical
DX: N17.9 Acute kidney failure, unspecified (principal); R00.1 Bradycardia, unspecified; E86.0 Dehydration; I10 Essential (primary) hypertension; E03.9 Hypothyroidism, unspecified; E78.5 Hyperlipidemia, unspecified; N40.0 Benign prostatic hyperplasia without lower urinary tract symptoms; R42 Dizziness and giddiness
CPT/HCPCS: 36592; 71046; 82436; 93005; 93010; 93306; 96360; 96372; G0378; J1644